=== PATIENT | male | born 1980 | race Caucasian/White ===

== ENCOUNTER 2017-09-15 08:22 | Day surgery (SDC) | payer OTHER ==
[~2017-09-15 08:22] MED LIST: IBUP-1984 PO
[2017-09-15] MEDS ORDERED: NO HOME MEDS (09:32)
[2017-09-15] MEDS ORDERED: LIDOcaine 1%/PF (10mg/ml) 5ml vial ONE (09:47)
== END 2017-09-15 10:07 | disposition home or self-care (01) ==
LOC: WOUND CARE 08:22
PROVIDERS: ATTEND Surgery
DX: L98.491 Non-pressure chronic ulcer of skin of other sites limited to breakdown of skin (principal); K64.8 Other hemorrhoids; F10.10 Alcohol abuse, uncomplicated; F12.10 Cannabis abuse, uncomplicated; F15.10 Other stimulant abuse, uncomplicated; F41.1 Generalized anxiety disorder; Z72.0 Tobacco use
CPT/HCPCS: 10140; A6021; J2001

== ENCOUNTER 2017-10-29 08:48 | Emergency (ER) | payer OTHER ==
[~2017-10-29] VITALS: Ht 180.3 cm; Wt 93.0 kg
[~2017-10-29 08:48] MED LIST changes: -IBUP-1984 PO; +NO HOME MEDS
[2017-10-29 09:25] VITALS: BP 148/74
[2017-10-29] MEDS ORDERED: IBUP-1984 PO (10:27)
== END 2017-10-29 22:17 | disposition home or self-care (01) ==
LOC: ER 08:49
DX: M76.62 Achilles tendinitis, left leg (principal); M77.32 Calcaneal spur, left foot; F12.10 Cannabis abuse, uncomplicated; F15.10 Other stimulant abuse, uncomplicated
CPT/HCPCS: 73630; 99284

== ENCOUNTER 2017-12-06 08:07 | Emergency (ER) | payer OTHER ==
[~2017-12-06] VITALS: Ht 180.3 cm; Wt 100.0 kg
[2017-12-06 08:23] VITALS: BP 136/97
[2017-12-06] MEDS ORDERED: ondansetron 4mg rapidly disintigrating tab PO ONE (09:00)
[2017-12-06] MEDS ORDERED: LORazepam 1 MG tablet PO ONE (09:00)
== END 2017-12-06 09:11 | disposition home or self-care (01) ==
LOC: ER 08:08
DX: F15.10 Other stimulant abuse, uncomplicated (principal); F10.10 Alcohol abuse, uncomplicated; F17.200 Nicotine dependence, unspecified, uncomplicated
CPT/HCPCS: 93005; 99283

== ENCOUNTER 2017-12-07 10:07 | Emergency (ER) | payer OTHER ==
[~2017-12-07] VITALS: Ht 177.8 cm; Wt 98.5 kg
[2017-12-07] MEDS ORDERED: chlordiazePOXIDE 25mg capsule PO ONE ×2 (11:05→12:05)
[2017-12-07 11:27] LABS: BASOPHILS % (AUTO) 0.3 % (0-1); EOSINOPHILS # (AUTO) 0.1 X10'3 (0-0.9); EOSINOPHILS % (AUTO) 0.7 % (0-6); HEMATOCRIT 47.4 % (42.0-52.0); HEMOGLOBIN 16.3 g/dl (14.0-17.9); LYMPHOCYTES # (AUTO) 1.6 X10'3 (1.1-4.8); LYMPHOCYTES % (AUTO) 12.5 % (21-51); MEAN CORPUSCULAR HEMOGLOBIN 31.8 PG (27.0-31.0); MEAN CORPUSCULAR HGB CONC 34.3 % (33.0-36.5); MEAN CORPUSCULAR VOLUME 92.5 FL (78-98); MEAN PLATELET VOLUME 7.9 FL (7.4-10.4); MONOCYTES # (AUTO) 0.9 X10'3 (0-0.9); NEUTROPHILS # (AUTO) 10.4 X10'3 (1.8-7.7); NEUTROPHILS % (AUTO) 79.5 % (42-75); PLATELET COUNT 197 X10'3 (140-440); RED BLOOD COUNT 5.12 X10'6 (4.70-6.10); RED CELL DISTRIBUTION WIDTH 13.4 % (11.5-14.5); WHITE BLOOD COUNT 13.1 X10'3 (4.5-11.0)
[2017-12-07 11:34] LABS: ALANINE AMINOTRANSFERASE 54 U/L (12-78); ALBUMIN 3.9 G/DL (3.4-5.0); ALBUMIN/GLOBULIN RATIO 1.1 (1.1-1.5); ALKALINE PHOSPHATASE 47 IU/L (46-116); ANION GAP 9 (8-16); ASPARTATE AMINO TRANSFERASE 40 U/L (10-37); BLOOD UREA NITROGEN 10 MG/DL (7-18); BUN/CREATININE RATIO 9.3 (5.4-32.0); CALCIUM 8.8 MG/DL (8.5-10.1); CHLORIDE 101 MMOL/L (99-107); CREATININE 1.08 MG/DL (0.60-1.10); GLUCOSE 101 MG/DL (70-104); MAGNESIUM 1.9 MG/DL (1.5-2.4); POTASSIUM 3.6 MMOL/L (3.5-5.1); SODIUM 138 MMOL/L (135-145); TOTAL CARBON DIOXIDE 28.2 MMOL/L (24-32); TOTAL PROTEIN 7.6 G/DL (6.4-8.2); eGFR 76 ML/MIN
[2017-12-07] MEDS ORDERED: multivitamins, therapeutics tablet PO STA (12:04)
[2017-12-07] MEDS ORDERED: thiamine 100mg tablet PO ONE (12:05)
[2017-12-07] MEDS ORDERED: folic acid 1mg tablet PO ONE (12:05)
[2017-12-07] MEDS ORDERED: normal saline 1000ML IV soln IVB ONE ×2 (12:05→12:10)
[2017-12-07] MEDS ORDERED: phenobarbital inj 260 MG in normal saline 100ml IV soln 99 ML IV STA (12:10)
[2017-12-07] MEDS ORDERED: magnesium oxide 400mg tablet PO ONE (12:15)
[2017-12-07 12:38] LABS: CKMB RELATIVE INDEX 0.9 RATIO (0-2.5); CREATINE KINASE 512 U/L (39-308)
[2017-12-07 13:13] LABS: CLARITY,URINE SLIGHTLY CLOUDY (Clear); COLOR,URINE YELLOW (Yellow); GLUCOSE, URINE NEGATIVE (Neg); KETONES,URINE NEGATIVE (Neg); LEUKOCYTE ESTERASE ,URINE NEGATIVE (Neg); NITRITES, URINE NEGATIVE (Neg); OCCULT BLOOD,URINE TRACE-INTACT (Neg); PROTEIN,URINE NEGATIVE (Neg); UROBILINOGEN,URINE 0.2 E.U/dL (0.2-1.0)
[2017-12-07 13:16] LABS: UA COLLECTION TYPE CLN CATCH MIDSTREAM
[2017-12-07 13:21] LABS: AMORPHOUS PHOSPHATES 1+; BACTERIA,URINE NONE SEEN /HPF (Neg); RBC,URINE 0-2 /HPF (0-2); SQUAMOUS EPITHELIAL CELL,UR FEW /LPF (FEW)
[2017-12-07 13:22] LABS: WBC,URINE 0-4 /HPF (0-4)
[2017-12-07 14:20] VITALS: BP 145/89
== END 2017-12-07 14:23 | disposition home or self-care (01) ==
LOC: ER 10:07
DX: F41.9 Anxiety disorder, unspecified (principal); F10.239 Alcohol dependence with withdrawal, unspecified; I10 Essential (primary) hypertension; F17.200 Nicotine dependence, unspecified, uncomplicated; F15.90 Other stimulant use, unspecified, uncomplicated
CPT/HCPCS: 36415; 71045; 80053; 81001; 82550; 82553; 83735; 84484; 85025; 93005; 96374; 99285; J2560; J7030

== ENCOUNTER 2017-12-22 11:10 | Emergency (ER) | payer OTHER ==
[~2017-12-22] VITALS: Ht 180.3 cm; Wt 98.0 kg
[2017-12-22 11:25] VITALS: BP 140/98
[2017-12-22] MEDS ORDERED: LORA1TAB PO (12:51)
== END 2017-12-22 13:01 | disposition home or self-care (01) ==
LOC: ER 11:10
DX: F15.90 Other stimulant use, unspecified, uncomplicated (principal); I10 Essential (primary) hypertension; Z79.899 Other long term (current) drug therapy
CPT/HCPCS: 93005; 99283

== ENCOUNTER 2017-12-26 20:18 | Emergency (ER) | payer OTHER ==
[~2017-12-26] VITALS: Ht 180.3 cm; Wt 100.0 kg
[~2017-12-26 20:18] MED LIST changes: +LORA1TAB PO
[2017-12-26 20:27] VITALS: BP 127/61
== END 2017-12-26 20:33 | disposition home or self-care (01) ==
LOC: ER 20:19
DX: Z04.1 Encounter for examination and observation following transport accident (principal); F10.929 Alcohol use, unspecified with intoxication, unspecified; F15.90 Other stimulant use, unspecified, uncomplicated; I10 Essential (primary) hypertension; Z79.899 Other long term (current) drug therapy; Y90.9 Presence of alcohol in blood, level not specified
CPT/HCPCS: 99284